=== PATIENT | female | born 1980 | race Caucasian/White ===

== ENCOUNTER 2019-10-03 20:09 | Emergency (ER) | payer MEDICAID, OTHER ==
[~2019-10-03] VITALS: Ht 160 cm; Wt 65.3 kg
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
--- NOTE | 2019-10-03 20:49 | NUR ---
URINE COLLECTED AND SENT TO LAB
--- NOTE | 2019-10-03 20:53 | NUR ---
LINE ESTABLISHED RAC 20, BLOOD COLLECTED, AND SENT TO LAB.
[2019-10-03 21:00] LABS: BASOPHILS # (AUTO) 0.1 /CMM (0.0-0.2); BASOPHILS % (AUTO) 0.6 % (0.0-2.0); EOSINOPHILS % (AUTO) 8.5 % (0.0-6.0); HEMATOCRIT 33 % (33-45); HEMOGLOBIN 11.1 g/dL (11.5-14.8); LYMPHOCYTES # (AUTO) 0.9 /CMM (0.8-4.8); LYMPHOCYTES % (AUTO) 9.3 % (20.0-44.0); MEAN CORPUSCULAR HGB CONC 33 g/dl (31.0-36.0); MEAN CORPUSCULAR VOLUME 97 fL (82-100); MONOCYTES # (AUTO) 0.8 /CMM (0.1-1.30); MONOCYTES % (AUTO) 8.1 % (2.0-12.0); NEUTROPHILS # (AUTO) 7.1 /CMM (1.8-8.9); NEUTROPHILS % (AUTO) 73.5 % (43.0-81.0); PLATELET COUNT (AUTO) 423 /CMM (150-450); RED BLOOD CELL COUNT(AUTO) 3.44 MIL/uL (4.0-5.2); WHITE BLOOD COUNT (AUTO) 9.7 K/uL (4.3-11.0)
[2019-10-03 21:02] LABS: APPEARANCE,URINE Clear (CLEAR); BILIRUBIN,URINE Negative (NEGATIVE); BLOOD, URINE Small Ery/uL (NEGATIVE); COLOR,URINE Yellow (YELLOW); KETONES,URINE Negative (NEGATIVE); LEUKOCYTE ESTERASE ,URINE Negative (NEGATIVE); NITRITE, URINE Negative (NEGATIVE); PH,URINE 5.5 (5.0-8.0); PROTEIN,URINE Negative (NEGATIVE); UGLUCOSE Negative (NEGATIVE); UROBILINOGEN,URINE 0.2 EU/dL (0.2)
[2019-10-03 21:03] LABS: BACTERIA,URINE Rare /HPF (None Seen); SQUAMOUS EPITHELIAL CELL,UR Few /HPF (None Seen); WBC,URINE 0-2 /HPF (0-3)
[2019-10-03] MEDS ORDERED: IV NS 0.9% 250 ML IV ONE (21:13)
[2019-10-03] MEDS ORDERED: IOHEXOL-300 100 ML VIAL IV ONE (21:13)
--- NOTE | 2019-10-03 21:30 | NUR ---
BROUGHT TO CT
[2019-10-03 22:00] LABS: CALCIUM, SERUM 8.4 mg/dL (8.5-10.1); CREATININE 0.7 mg/dL (0.6-1.3)
--- NOTE | 2019-10-03 23:07 | NUR ---
JUSTIN SENT TO LAB
--- NOTE | 2019-10-03 23:07 | NUR ---
IV removed. Catheter intact and site benign. Pressure and 4x4 applied to site. No bleeding noted.
--- NOTE | 2019-10-03 23:07 | NUR ---
Patient discharged to home in stable condition. Written and verbal after care instructions given. Patient verbalizes understanding of instruction. Pt ambulated with steady gait.
[2019-10-03 23:08] VITALS: BP 127/68
== END 2019-10-03 23:14 | disposition home or self-care (01) ==
LOC: ER 20:09
DX: R50.9 Fever, unspecified (principal); Z20.828 Contact with and (suspected) exposure to other viral communicable diseases; Z98.890 Other specified postprocedural states; Z88.2 Allergy status to sulfonamides; Z98.82 Breast implant status
CPT/HCPCS: 36415; 71045; 74177; 80048; 81001; 84703; 85025; 85730; 99285; C9803; J7050; Q9967; U0003; 81000-TC

== ENCOUNTER 2020-03-31 01:36 | Emergency (ER) | payer MEDICAID, OTHER ==
[~2020-03-31] VITALS: Ht 160 cm; Wt 66.7 kg
[2020-03-31 01:48] VITALS: BP 102/87
[2020-03-31] MEDS ORDERED: FAMOTIDINE (20 MG) 20 MG TABLET PO ONE (02:00)
[2020-03-31] MEDS ORDERED: FAMOTIDINE (20 MG) 20 MG TABLET ONE (02:00)
[2020-03-31] MEDS ORDERED: predniSONE 10 MG TABLET PO ONE (02:00)
[2020-03-31] MEDS ORDERED: predniSONE 20 MG TABLET ONE (02:01)
== END 2020-03-31 02:18 | disposition home or self-care (01) ==
LOC: ER 01:38
DX: T78.1XXA Other adverse food reactions, not elsewhere classified, initial encounter (principal); L50.9 Urticaria, unspecified; Z98.890 Other specified postprocedural states; Z90.89 Acquired absence of other organs; Z88.2 Allergy status to sulfonamides; X58.XXXA Exposure to other specified factors, initial encounter
CPT/HCPCS: 99283; J7512

== ENCOUNTER 2021-07-05 23:27 | Emergency (ER) | payer OTHER ==
[~2021-07-05] VITALS: Ht 160 cm; Wt 65.3 kg
--- NOTE | 2021-07-06 00:54 | NUR ---
Patient discharged to home in stable condition. Written and verbal after care instructions given. Patient verbalizes understanding of instruction.
[2021-07-06 00:55] VITALS: BP 121/70
== END 2021-07-06 00:55 | disposition home or self-care (01) ==
LOC: ER 23:30
DX: T59.91XA Toxic effect of unspecified gases, fumes and vapors, accidental (unintentional), initial encounter (principal); J68.9 Unspecified respiratory condition due to chemicals, gases, fumes and vapors; Z98.82 Breast implant status; Z88.2 Allergy status to sulfonamides

== ENCOUNTER 2021-08-28 06:53 | Emergency (ER) | payer OTHER ==
[~2021-08-28] VITALS: Ht 160 cm; Wt 63.5 kg
--- NOTE | 2021-08-28 07:05 | NUR ---
PATIENT CANNOT PROVIDE URINE SAMPLE AT THE MOMENT.
--- NOTE | 2021-08-28 07:06 | NUR ---
BIBSELF C/O RLQ ABD PAIN SINCE YESTERDAY -N/V. PT A/O X 4, RR EVEN AND UNLABORED NO SOB NOTED. PT CONNECTED TO CARDIAC AND POX MONITOR.
--- NOTE | 2021-08-28 07:15 | NUR ---
RECEIVED ENDORSEMENT FROM OSMAN MARQUEZ. PATIENT AWAKE IN BED. PHLEBOTOMY AT BEDSIDE. LABS DRAWN. SAFETY PRECAUTIONS IN PLACE.
[2021-08-28 07:39] LABS: BASOPHILS % (AUTO) 0.6 % (0.0-2.0); EOSINOPHILS % (AUTO) 4.9 % (0.0-6.0); HEMATOCRIT 39 % (33-45); HEMOGLOBIN 13.3 g/dL (11.5-14.8); LYMPHOCYTES # (AUTO) 1.2 K/uL (0.8-4.8); LYMPHOCYTES % (AUTO) 18.4 % (20.0-44.0); MEAN CORPUSCULAR HGB CONC 34 g/dl (31.0-36.0); MEAN CORPUSCULAR VOLUME 92 fL (82-100); MONOCYTES # (AUTO) 0.6 K/uL (0.1-1.30); MONOCYTES % (AUTO) 8.9 % (2.0-12.0); NEUTROPHILS # (AUTO) 4.3 K/uL (1.8-8.9); NEUTROPHILS % (AUTO) 67.2 % (43.0-81.0); PLATELET COUNT (AUTO) 256 K/uL (150-450); RED BLOOD CELL COUNT(AUTO) 4.24 MIL/uL (4.0-5.2); WHITE BLOOD COUNT (AUTO) 6.4 K/uL (4.3-11.0)
[2021-08-28] MEDS: IV NS 0.9% 1,000 ML BAG IV ONE (07:39)
--- NOTE | 2021-08-28 07:40 | NUR ---
UA COLLECTED AND SENT TO LAB
[2021-08-28 07:57] LABS: ALBUMIN 3.7 g/dL (3.4-5.0); BILIRUBIN,DIRECT 0.1 mg/dL (0.0-0.2); BILIRUBIN,TOTAL 0.5 mg/dL (0.2-1.0); CALCIUM, SERUM 8.2 mg/dL (8.5-10.1); CREATININE 0.7 mg/dL (0.6-1.3); TOTAL PROTEIN, SERUM 7.1 g/dL (6.4-8.2)
[2021-08-28 08:24] LABS: BILIRUBIN,URINE NEGATIVE (NEGATIVE); COLOR,URINE YELLOW (YELLOW); LEUKOCYTE ESTERASE ,URINE SMALL (NEGATIVE); NITRITE, URINE NEGATIVE (NEGATIVE); PH,URINE 5.5 (5.0-8.0); PROTEIN,URINE NEGATIVE (NEGATIVE); UGLUCOSE NEGATIVE (NEGATIVE); UROBILINOGEN,URINE 0.2 EU/dL (0.2)
[2021-08-28] MEDS ORDERED: IOHEXOL-300 100 ML VIAL IV ONE (08:25)
[2021-08-28] MEDS ORDERED: IV NS 0.9% 250 ML IV ONE (08:25)
[2021-08-28] MEDS ORDERED: CT SWABBABLE VALVE TRANS SET 1 EA INFUS.SET MC ONE (08:25)
--- NOTE | 2021-08-28 08:40 | NUR ---
PATIENT TRANSFERRED TO CT
[2021-08-28 09:29] LABS: BACTERIA,URINE Few /HPF (None Seen); SQUAMOUS EPITHELIAL CELL,UR Moderate /HPF (None Seen)
--- NOTE | 2021-08-28 09:54 | NUR ---
IV removed. Catheter intact and site benign. Pressure and 4x4 applied to site. No bleeding noted.
--- NOTE | 2021-08-28 10:00 | NUR ---
Patient discharged to home in stable condition. Written and verbal after care instructions given. Patient verbalizes understanding of instruction.
[2021-08-28 10:03] VITALS: BP 118/72
== END 2021-08-28 10:04 | disposition home or self-care (01) ==
LOC: ER 06:55
DX: R10.31 Right lower quadrant pain (principal); Z98.82 Breast implant status; Z88.2 Allergy status to sulfonamides
CPT/HCPCS: 36415; 74177; 80048; 80076; 81001; 83690; 84703; 85025; 87086; 96360; 99285; J7030; J7050; Q9967

== ENCOUNTER 2024-02-28 08:29 | Emergency (ER) | payer MEDICAID, OTHER ==
[~2024-02-28] VITALS: Ht 160 cm; Wt 63.5 kg
[2024-02-28 08:50] VITALS: TEMP 98.2
[2024-02-28] MEDS ORDERED: GUAI1TBM19 PO (11:32)
[2024-02-28] MEDS ORDERED: BENZ-13 PO (11:32)
[2024-02-28 11:58] VITALS: BP 110/65; O2SAT 97
== END 2024-02-28 11:50 | disposition home or self-care (01) ==
LOC: ER 08:33
DX: J06.9 Acute upper respiratory infection, unspecified (principal); B97.89 Other viral agents as the cause of diseases classified elsewhere; R07.89 Other chest pain; Z88.2 Allergy status to sulfonamides; Z20.822 Contact with and (suspected) exposure to COVID-19
CPT/HCPCS: 71045-TC